=== PATIENT | male | born 1970 | race Caucasian/White ===

== ENCOUNTER → 2018-06-22 07:22 | Outpatient (CLI) | payer OTHER, SELFPAY ==
[2018-06-22 08:17] LABS: Lithium 0.7 mmol/L (0.6-1.2)
[2018-06-22 08:52] LABS: Thyroid Stimulating Hormone 2.86 uIU/mL (0.47-4.68)
== END ==
PROVIDERS: PCP Internal Medicine; Visit Provider Psychiatry & Neurology Addiction Medicine
DX: F31.76 Bipolar disorder, in full remission, most recent episode depressed (principal)
CPT/HCPCS: 36415; 80178; 84443

== ENCOUNTER → 2018-09-21 13:31 | Outpatient (CLI) | payer OTHER, SELFPAY ==
[2018-09-21 14:10] LABS: Add Manual Diff / Slide Review NO; Basophils Percent Auto 0.5 % (0-2); Eosinophils Percent Auto 2.5 % (2-4); Hematocrit 45.1 % (41-53); Hemoglobin 15.5 g/dL (13.5-17.5); Lymphocytes Percent Auto 20.8 % (25-40); Mean Corpuscular HGB Conc 34.3 % (30-36); Mean Corpuscular Hemoglobin 31.1 PG (26-34); Mean Corpuscular Volume 90.7 fL (80-100); Monocytes Percent Auto 6.6 % (3-14); Neutrophils Absolute Auto 5900 /uL (1500-7000); Neutrophils Percent Auto 69.6 % (50-75); Platelet Count 244 X10^3/uL (150-400); Red Blood Cell Count 4.97 X10^6/uL (4.5-5.9); Red Cell Distribution Width 12.8 % (11.6-14.8); White Blood Cell Count 8.4 X10^3/uL (4.5-11.0)
[2018-09-21 14:47] LABS: Erythrocyte Sedimentation Rate 3 MM/HR (0-15)
[2018-09-21 16:06] LABS: Alanine Aminotransferase 31 IU/L (21-72); Albumin 4.6 g/dL (3.5-5.0); Albumin Globulin Ratio 1.8 (1.0-2.8); Alkaline Phosphatase 55 U/L (38-126); Aspartate Aminotransferase 27 IU/L (17-59); BUN Creatinine Ratio 21.7 (6-22); Bilirubin Total 0.6 mg/dL (0.2-1.3); Blood Urea Nitrogen 13 mg/dL (9-20); Calcium 9.8 mg/dL (8.4-10.2); Carbon Dioxide 26 mmol/L (22-32); Chloride 102 mmol/L (98-107); Estimated Glomerular Filt Rate > 60.0 mL/min (>60); Globulin 2.6 g/dL (1.7-4.1); Glucose 78 mg/dL (70-100); HEMOLYSIS < 15 (0-50); Potassium 4.4 mmol/L (3.4-5.1); Sodium 141 mmol/L (137-145); Total Protein 7.2 g/dL (6.3-8.2)
[2018-09-21 16:07] LABS: C-Reactive Protein Quant < 0.5 mg/dL (<1.0)
== END ==
PROVIDERS: PCP Internal Medicine; Visit Provider Internal Medicine
DX: R10.9 Unspecified abdominal pain (principal)
CPT/HCPCS: 36415; 80053; 85025; 85651; 86140

== ENCOUNTER → 2019-01-05 07:03 | Outpatient (CLI) | payer OTHER, SELFPAY ==
[2019-01-05 09:34] LABS: Lithium 0.9 mmol/L (0.6-1.2)
[2019-01-05 09:40] LABS: Blood Urea Nitrogen 7 mg/dL (9-20); Calcium 9.6 mg/dL (8.4-10.2); Carbon Dioxide 25 mmol/L (22-32); Chloride 102 mmol/L (98-107); Estimated Glomerular Filt Rate > 60.0 mL/min (>60); Glucose 64 mg/dL (70-100); HEMOLYSIS < 15 (0-50); Potassium 4.7 mmol/L (3.4-5.1); Sodium 138 mmol/L (137-145)
== END ==
PROVIDERS: PCP Internal Medicine; Visit Provider Psychiatry & Neurology Addiction Medicine
DX: F31.76 Bipolar disorder, in full remission, most recent episode depressed (principal)
CPT/HCPCS: 36415; 80048; 80178

== ENCOUNTER → 2019-02-08 07:21 | Outpatient (CLI) | payer OTHER, SELFPAY ==
[2019-02-08 08:53] LABS: Cholesterol 108 mg/dL (140-199); HDL Cholesterol 25 mg/dL (40-60); LDL Cholesterol Calculated 51 mg/dL (<100); Triglycerides 158 mg/dL (35-150)
== END ==
PROVIDERS: PCP Internal Medicine; Visit Provider Internal Medicine
DX: E78.2 Mixed hyperlipidemia (principal)
CPT/HCPCS: 36415; 80061

== ENCOUNTER → 2019-10-15 09:00 | Outpatient (CLI) | payer OTHER, SELFPAY ==
--- NOTE | 2019-10-15 | DI.RAD.S_ITS ---
PROCEDURE: XR LUMBAR SPINE 2-3V INDICATIONS: Low back pain TECHNIQUE: 3 views of the lumbar spine were acquired. COMPARISON: None. FINDINGS: Bones: 5 [id number]-[id number] vertebrae are present. There is normal bony alignment. No vertebral body compression fractures. Mild degenerative endplate changes and mild bilateral facet arthrosis at L4-5 and L5-S1 levels are seen. No suspicious bony lesions. Soft tissues: Overlying bowel gas pattern is normal. No suspicious soft tissue calcifications. IMPRESSION: No compression fracture or spondylolisthesis. Mild degenerative endplate changes and bilateral facet arthrosis at L4-5 and L5-S1 levels.. Dictated by: Spencer Ramos M.D. on 10/15/2019 at 10:00 Approved by: Spencer Ramos M.D. on 10/15/2019 at 10:01
== END ==
PROVIDERS: PCP Internal Medicine; Visit Provider Chiropractor
DX: M54.5 Low back pain (principal); M47.816 Spondylosis without myelopathy or radiculopathy, lumbar region; M47.817 Spondylosis without myelopathy or radiculopathy, lumbosacral region
CPT/HCPCS: 72100

== ENCOUNTER → 2020-03-20 07:10 | Outpatient (CLI) | payer OTHER, SELFPAY ==
[2020-03-20 08:59] LABS: BUN Creatinine Ratio 15.4 (6-22); Blood Urea Nitrogen 12 mg/dL (9-20); Calcium 9.4 mg/dL (8.4-10.2); Carbon Dioxide 24 mmol/L (22-32); Chloride 109 mmol/L (98-107); Estimated Glomerular Filt Rate > 60.0 mL/min (>60); Glucose 101 mg/dL (70-100); HEMOLYSIS 31 (0-50); Potassium 4.3 mmol/L (3.4-5.1); Sodium 139 mmol/L (137-145)
[2020-03-20 09:18] LABS: Lithium 0.7 mmol/L (0.6-1.2)
[2020-03-20 09:35] LABS: Thyroid Stimulating Hormone 1.81 uIU/mL (0.47-4.68)
== END ==
PROVIDERS: PCP Internal Medicine; Referring Provider Psychiatry & Neurology Addiction Medicine; Visit Provider Psychiatry & Neurology Addiction Medicine
DX: F31.76 Bipolar disorder, in full remission, most recent episode depressed (principal)
CPT/HCPCS: 36415; 80048; 80178; 84443

== ENCOUNTER → 2020-09-25 07:17 | Outpatient (CLI) | payer OTHER, SELFPAY ==
[2020-09-25 09:15] LABS: Add Manual Diff / Slide Review NO; Basophils Absolute Auto 0 /uL (0-100); Basophils Percent Auto 0.8 % (0-2); Eosinophils Absolute Auto 200 /uL (0-450); Eosinophils Percent Auto 2.9 % (2-4); Hematocrit 46.4 % (41-53); Hemoglobin 15.8 g/dL (13.5-17.5); Lymphocytes Absolute Auto 1900 /uL (1100-4500); Lymphocytes Percent Auto 30.7 % (25-40); Mean Corpuscular Hemoglobin 29.3 PG (26-34); Mean Corpuscular Volume 86.4 fL (80-100); Monocytes Absolute Auto 500 /uL (0-900); Monocytes Percent Auto 7.8 % (3-14); Neutrophils Absolute Auto 3600 /uL (1500-7000); Neutrophils Percent Auto 57.8 % (50-75); Platelet Count 221 X10^3/uL (150-400); Red Blood Cell Count 5.37 X10^6/uL (4.5-5.9); Red Cell Distribution Width 13.4 % (11.6-14.8); White Blood Cell Count 6.3 X10^3/uL (4.5-11.0)
[2020-09-25 09:45] LABS: Alanine Aminotransferase 42 IU/L (<50); Albumin 4.4 g/dL (3.5-5.0); Albumin Globulin Ratio 1.3 (1.0-2.8); Alkaline Phosphatase 68 U/L (38-126); Aspartate Aminotransferase 36 IU/L (17-59); BUN Creatinine Ratio 19.4 (6-22); Bilirubin Total 0.4 mg/dL (0.2-1.3); Blood Urea Nitrogen 18 mg/dL (9-20); C-Reactive Protein Quant 0.6 mg/dL (<1.0); Calcium 9.6 mg/dL (8.4-10.2); Carbon Dioxide 24 mmol/L (22-32); Chloride 108 mmol/L (98-107); Cholesterol 232 mg/dL (140-199); Estimated Glomerular Filt Rate > 60.0 mL/min (>60); Globulin 3.3 g/dL (1.7-4.1); Glucose 100 mg/dL (70-100); HDL Cholesterol 28 mg/dL (40-60); HEMOLYSIS < 15 (0-50); LDL Cholesterol Calculated 136 mg/dL (<100); Lithium 0.5 mmol/L (0.6-1.2); Potassium 4.2 mmol/L (3.4-5.1); Sodium 137 mmol/L (137-145); Total Protein 7.7 g/dL (6.3-8.2); Triglycerides 338 mg/dL (35-150)
[2020-09-25 09:54] LABS: Erythrocyte Sedimentation Rate 2 MM/HR (0-15)
== END ==
PROVIDERS: PCP Internal Medicine; Referring Provider Internal Medicine; Visit Provider Internal Medicine
DX: E78.2 Mixed hyperlipidemia (principal); F31.9 Bipolar disorder, unspecified; I10 Essential (primary) hypertension
CPT/HCPCS: 36415; 80053; 80061; 80178; 85025; 85651; 86140

== ENCOUNTER → 2020-11-17 07:24 | Outpatient (CLI) | payer OTHER, SELFPAY ==
[2020-11-17 08:51] LABS: Alanine Aminotransferase 37 IU/L (<50); Albumin Globulin Ratio 1.4 (1.0-2.8); Alkaline Phosphatase 64 U/L (38-126); Aspartate Aminotransferase 33 IU/L (17-59); Bilirubin Total 0.3 mg/dL (0.2-1.3); Bilirubin Unconjugated 0.2 mg/dL (0.0-1.1); Cholesterol 227 mg/dL (140-199); Globulin 2.9 g/dL (1.7-4.1); HDL Cholesterol 27 mg/dL (40-60); HEMOLYSIS < 15 (0-50); LDL Cholesterol Calculated 131 mg/dL (<100); Total Protein 6.9 g/dL (6.3-8.2); Triglycerides 345 mg/dL (35-150)
== END ==
PROVIDERS: PCP Internal Medicine; Referring Provider Dermatology; Visit Provider Dermatology
DX: Z79.899 Other long term (current) drug therapy (principal); Z20.822 Contact with and (suspected) exposure to COVID-19; Z20.828 Contact with and (suspected) exposure to other viral communicable diseases
CPT/HCPCS: 36415; 80061; 80076; 86769

== ENCOUNTER → 2020-12-22 09:00 | Outpatient (CLI) | payer OTHER, SELFPAY ==
[2020-12-22 09:54] LABS: COVID19 -Nasal RAPID Negative (Negative)
== END ==
PROVIDERS: PCP Internal Medicine; Referring Provider Internal Medicine; Visit Provider Internal Medicine
DX: Z20.822 Contact with and (suspected) exposure to COVID-19 (principal)
CPT/HCPCS: 87635; C9803

== ENCOUNTER → 2020-12-22 12:44 | Outpatient (CLI) | payer OTHER, SELFPAY ==
--- NOTE | 2020-12-27 10:29 | PM.PFT.1 ---
Pulmonary Function Test Referral & Results Date Patient Seen: 12/22/20 Requesting provider: Arturo Rebollar Results: The spirometry demonstrates an FVC of 4.58 L which is 108% of predicted. The FEV1 was measured at 4.36 L which is 111% of predicted. The FEV1/FVC ratio was 80 which is 101% of predicted. Following the administration of bronchodilator there was no appreciable change to above normal numbers. Lung volumes show an SVC of 5.48 L which is 111% of predicted. The diffusing capacity was measured at 39.53 which is 122% of predicted. The maximum voluntary ventilation was normal Interpretation: This study demonstrates normal pulmonary function
== END ==
PROVIDERS: PCP Internal Medicine; Referring Provider Internal Medicine; Visit Provider Internal Medicine
DX: R06.2 Wheezing (principal); Z20.822 Contact with and (suspected) exposure to COVID-19
CPT/HCPCS: 87635; 94060; 94726; 94729; C9803

== ENCOUNTER → 2020-12-28 09:02 | Outpatient (CLI) | payer OTHER, SELFPAY ==
[2020-12-28 10:20] LABS: COVID19 -Nasal RAPID Negative (Negative)
== END ==
PROVIDERS: PCP Internal Medicine; Visit Provider Specialist
DX: Z20.822 Contact with and (suspected) exposure to COVID-19 (principal)
CPT/HCPCS: 87635; C9803

== ENCOUNTER 2020-12-29 08:19 | Day surgery (SDC) | payer OTHER, SELFPAY ==
[2020-12-29 08:44] VITALS: BP 136/83; PULSE 76; RESP 15; TEMP 36.6; O2SAT 98; BMI 43.0
[2020-12-29] MEDS: LACTATED RINGERS 1,000 ML 200 ML IV (08:55)
--- NOTE | 2020-12-29 09:11 | PM.HP.1 ---
History of Present Illness History of Present Illness Date Patient Seen: 12/29/20 Time Patient Seen: 09:12 Chief complaint: SDC Narrative: Patient here for screening colonoscopy. He has turned 50. No prior colonoscopies. No family history. Patient History Medical History Acne Bipolar I disorder (06/18/11) Chronic cough Essential hypertension (06/18/11) Hypogonadism in male (12/04/12) Mixed hyperlipidemia (06/18/11) Morbid obesity Obstructive sleep apnea, adult Peyronie disease Restless legs syndrome (RLS) Surgical History No history of previous surgery Family & Social History Family History Grandmother Heart disease Sleep apnea Obesity Mother Ulcerative colitis Restless leg syndrome Grandfather Colon cancer Father Ocular melanoma Grandmother No problems noted. Social History: household members spouse Tobacco & Substance use: Smoking Status Never smoker alcohol intake never Substance Use Type does not use Meds Home Medications and Allergies Home Medications Medication Instructions Recorded Confirmed Type aspirin [Aspir-81] 81 mg PO DAILY #0 06/18/11 12/29/20 History azelastine 137 mcg (0.1 %) nasal NASAL 75 Days #90 ml 09/24/18 12/08/20 History spray aerosol fluticasone propionate 50 1 spray NASAL DAILY 90 Days #96 09/24/18 12/29/20 History mcg/actuation nasal gram spray,suspension lithium carbonate 300 mg 1,500 mg PO DAILY 90 Days #450 tab 09/24/18 12/29/20 History tablet,extended release ipratropium bromide 21 mcg (0.03 2 spray INTRANASAL BID ml 12/08/20 12/29/20 History %) nasal spray isotretinoin 40 mg capsule 120 mg PO DAILY cap 12/08/20 12/29/20 History omeprazole 40 mg capsule,delayed 40 mg PO DAILY #30 cap 12/08/20 12/29/20 Rx release Allergies Allergy/AdvReac Type Severity Reaction Status Date / Time penicillin G [PENICILLIN G] Allergy Severe Unknown Verified 12/29/20 08:14 venom-honey bee Allergy Severe anaphylaxis Verified 12/29/20 08:14 [BEE VENOM (HONEY BEE)] Review of Systems Review of Systems Narrative: Has sleep apnea and uses a machine. ROS: Yes All systems reviewed with the patient and are negative except as otherwise documented Exam Vital Signs (past 8 hours): - 12/29/20 08:44 Temperature 97.9 F Pulse Rate 76 Respiratory Rate 15 Blood Pressure 136/83 Pulse Oximetry 98 Oxygen Delivery Method Room Air Narrative Exam Narrative: Pleasant cooperative patient no apparent distress. Lungs are clear to auscultation. No rales or rhonchi. Heart regular rate and rhythm no murmur gallop. Abdomen is soft nontender without mass. No obvious hernias. Patient is alert and oriented x3. Assessment & Plan Assessment & Plan narrative: The patient for a screening colonoscopy. I have discussed the procedure with them. Risks of bleeding, perforation which would necessitate major operation, failure to find remove all lesions, the potential tattoo were all discussed. All questions were answered. They wished to proceed.
--- NOTE | 2020-12-29 09:13 | PM.PREOP ---
Pre-operative Note COVID-19 COVID-19 status: Negative Result date/Date tested (Pos, Neg/Pending): 12/28/20 Interval Note History & Physical reviewed/Exam performed by Physician: Yes Changes to H&P: No ASA Class (for procedural sedation): II
[2020-12-29] MEDS: MIDAZOLAM 5 MG/5 ML VIAL IV (09:17)
[2020-12-29] MEDS: fentaNYL 250 MCG/5 ML INJ IV (09:20)
--- NOTE | 2020-12-29 09:54 | PM.OP.ENDO ---
Operative Date/Time/Diagnoses Date of procedure: 12/29/20 Time of procedure: 09:54 Pre-op diagnosis: Screening examination. This is his 1st colonoscopy. Grandfather with colon cancer. Mother with ulcerative colitis. Post-op diagnosis: same (Diverticulosis sigmoid colon) Procedure & Clinicians Study performed: Colonoscopy Same procedure as scheduled: Yes Indications: Screening for colon cancer due to age Surgeon: Andrés Garber Procedure Notes SCOAP/Timeout: Performed Procedure in detail: The patient was placed in the left lateral decubitus position and underwent IV sedation directed by the surgeon consisting of fentanyl and Versed. He desired to be lightly sedated so he could watch some of the procedure. Digital exam was unremarkable though I could not feel his prostate due to his anatomy in the length of my finger.. The scope was inserted and advanced through the rectum into the sigmoid, descending, transverse, and ascending colon. Patient was noted to have diverticulosis in his sigmoid colon. With great difficulty you we reached the cecum. This was helped by inserting a stiffener, applying pressure, and repositioning the patient.. The cecum was reached identified by the ileocecal valve and the appendiceal opening. The ileocecal valve was successfully cannulated. The terminal ileum was normal in appearance. The scope was gradually brought out. No Polyps were found . The scope ultimately was retroflexed in the rectum. The appearance was normal. The scope was removed and the patient tolerated the procedure well. Prep was very good. Scope withdrawal time: 10.5 minutes Sedation minutes: 35 Findings: diverticulosis Specimen(s): none sent Complications: none Post-procedure Recommendations: Colonscopy in 5 years (Due to family history) Follow up: as needed Disposition: PACU
[2020-12-29 10:07] VITALS: BP 151/97; PULSE 82; RESP 18; TEMP 37; O2SAT 97
[2020-12-29 10:20] VITALS: BP 142/78; PULSE 75; RESP 16; TEMP 36.7; O2SAT 97
[2020-12-29 10:33] VITALS: BP 148/95; PULSE 81; RESP 16; TEMP 36.1; O2SAT 96
== END 2020-12-29 10:35 | disposition home or self-care (01) ==
PROVIDERS: PCP Internal Medicine; Referring Provider Internal Medicine; Visit Provider Specialist
PROC: 0DJD8ZZ Inspection of Lower Intestinal Tract, Via Natural or Artificial Opening Endoscopic (ICD-10-PCS; CPT 45378; principal; 2020-12-29 09:15)
DX: Z12.11 Encounter for screening for malignant neoplasm of colon (principal); Z83.79 Family history of other diseases of the digestive system; G47.33 Obstructive sleep apnea (adult) (pediatric); K57.30 Diverticulosis of large intestine without perforation or abscess without bleeding
CPT/HCPCS: 45378; 99152; 99153; J2250; J3010

== ENCOUNTER → 2021-01-05 07:31 | Outpatient (CLI) | payer OTHER, SELFPAY ==
[2021-01-05 09:21] LABS: Alanine Aminotransferase 51 IU/L (<50); Albumin 4.1 g/dL (3.5-5.0); Albumin Globulin Ratio 1.2 (1.0-2.8); BUN Creatinine Ratio 17.5 (6-22); Bilirubin Total 0.7 mg/dL (0.2-1.3); Blood Urea Nitrogen 14 mg/dL (9-20); Calcium 9.1 mg/dL (8.4-10.2); Carbon Dioxide 22 mmol/L (22-32); Chloride 107 mmol/L (98-107); Cholesterol 235 mg/dL (140-199); Estimated Glomerular Filt Rate > 60.0 mL/min (>60); Globulin 3.5 g/dL (1.7-4.1); Glucose 108 mg/dL (70-100); HDL Cholesterol 21 mg/dL (40-60); HEMOLYSIS 184 (0-50); Sodium 137 mmol/L (137-145); Total Protein 7.6 g/dL (6.3-8.2)
[2021-01-05 09:22] LABS: Potassium 4.7 mmol/L (3.4-5.1)
[2021-01-05 09:23] LABS: Alkaline Phosphatase 89 U/L (38-126); Aspartate Aminotransferase 53 IU/L (17-59); Triglycerides 2041 mg/dL (35-150)
[2021-01-07 13:05] LABS: Lithium 0.7 mmol/L (0.6-1.2)
== END ==
PROVIDERS: PCP Internal Medicine; Referring Provider Internal Medicine; Visit Provider Internal Medicine
DX: E78.2 Mixed hyperlipidemia (principal); Z79.899 Other long term (current) drug therapy; F31.9 Bipolar disorder, unspecified
CPT/HCPCS: 36415; 80053; 80061; 80178

== ENCOUNTER → 2021-03-09 07:38 | Outpatient (CLI) | payer OTHER, SELFPAY ==
[2021-03-09 09:09] LABS: Cholesterol 118 mg/dL (140-199); HDL Cholesterol 30 mg/dL (40-60); LDL Cholesterol Calculated 58 mg/dL (<100); Triglycerides 151 mg/dL (35-150)
== END ==
PROVIDERS: PCP Internal Medicine; Referring Provider Internal Medicine; Visit Provider Internal Medicine
DX: Z79.899 Other long term (current) drug therapy (principal)
CPT/HCPCS: 36415; 80061

== ENCOUNTER → 2021-03-17 08:27 | Outpatient (CLI) | payer OTHER, SELFPAY ==
--- NOTE | 2021-03-17 08:29 | DI.MRI.S_ITS ---
PROCEDURE: MR LUMBAR SPINE WO CON INDICATIONS: right lumbar radiculopathy TECHNIQUE: Noncontrast sagittal T1 spin echo and T2 fast echo, sagittal STIR, axial T1 and T2 fast spin echo through the lumbar spine. In cases with scoliosis, additional coronal T2 fast spin echo may be performed. COMPARISON: None. FINDINGS: Image quality: Excellent. Alignment and Curvature: Normal lumbar vertebral body height and alignment. Bone Marrow: No suspicious focal marrow signal abnormality or bone marrow edema. Spinal Cord: Normal position and appearance of the conus. Regional Soft Tissues: Prevertebral and paraspinous soft tissues are within normal limits. The included unenhanced retroperitoneal visceral structures demonstrate no acute abnormality. T12-L1: No spinal canal or neural foraminal stenosis. L1-L2: No spinal canal or neural foraminal stenosis. L2-L3: No spinal canal or neural foraminal stenosis. L3-L4: Disc bulge flattens the ventral thecal sac. No mass effect upon the traversing L4 nerve roots. Foraminal components of the disc bulge contribute to trace neural foraminal narrowing. There are small bilateral facet effusions. L4-L5: Diffuse disc bulge with a superimposed broad-based posterior disc protrusion flattens and indents the ventral thecal sac. Disc material mildly displaces the descending right L5 nerve root within the right subarticular zone. Foraminal components of the disc bulge and facet hypertrophy contribute to mild bilateral neural foraminal narrowing. L5-S1: Diffuse disc bulge flattens the ventral thecal sac and mildly displaces the descending right S1 nerve roots. Foraminal components of the disc bulge and facet hypertrophy contribute to moderate bilateral neural foraminal stenosis. IMPRESSION: Degenerative changes at L4-L5 and L5-S1 with displacement of the descending right L5 and S1 nerve roots at these levels, respectively. Correlate for any corresponding radicular symptoms. Moderate neural foraminal narrowing at L5-S1. Correlate for any corresponding L5 radicular symptoms. Dictated by: Storm Yao M.D. on 03/19/2021 at 8:34 Approved by: Storm Yao M.D. on 03/19/2021 at 8:38
== END ==
PROVIDERS: PCP Internal Medicine; Referring Provider Internal Medicine; Visit Provider Internal Medicine
DX: M47.26 Other spondylosis with radiculopathy, lumbar region (principal); M47.27 Other spondylosis with radiculopathy, lumbosacral region; M48.07 Spinal stenosis, lumbosacral region; M51.17 Intervertebral disc disorders with radiculopathy, lumbosacral region
CPT/HCPCS: 72148

== ENCOUNTER → 2021-12-28 07:53 | Outpatient (CLI) | payer OTHER, SELFPAY ==
--- NOTE | 2021-12-28 08:16 | DI.RAD.S_ITS ---
PROCEDURE: XR CHEST 2V INDICATIONS: cough TECHNIQUE: 2 views of the chest were acquired. COMPARISON: None. FINDINGS: Surgical changes and devices: None. Lungs and pleura: Lungs are clear. No pleural effusions or pneumothorax. Mediastinum: Mediastinal contours are normal. Heart size is normal. Bones and chest wall: No suspicious bony abnormalities. Soft tissues appear unremarkable. IMPRESSION: No acute cardiopulmonary process is seen. No focal infiltrates are seen. Dictated by: Gume Myrick M.D. on 12/28/2021 at 12:21 Approved by: Gume Myrick M.D. on 12/28/2021 at 12:24
[2021-12-28 08:20] LABS: Add Manual Diff / Slide Review NO; Basophils Absolute Auto 0 /uL (0-100); Basophils Percent Auto 0.6 % (0-2); Eosinophils Absolute Auto 200 /uL (0-450); Eosinophils Percent Auto 3.9 % (2-4); Hematocrit 42.8 % (41-53); Hemoglobin 14.8 g/dL (13.5-17.5); Lymphocytes Absolute Auto 1900 /uL (1100-4500); Lymphocytes Percent Auto 36.4 % (25-40); Mean Corpuscular HGB Conc 34.7 % (30-36); Mean Corpuscular Hemoglobin 30.2 PG (26-34); Monocytes Absolute Auto 400 /uL (0-900); Monocytes Percent Auto 8.1 % (3-14); Neutrophils Absolute Auto 2700 /uL (1500-7000); Platelet Count 189 X10^3/uL (150-400); Red Blood Cell Count 4.91 X10^6/uL (4.5-5.9); Red Cell Distribution Width 13.5 % (11.6-14.8); White Blood Cell Count 5.3 X10^3/uL (4.5-11.0)
[2021-12-28 08:52] LABS: Lithium 0.6 mmol/L (0.6-1.2)
[2021-12-28 09:02] LABS: Alanine Aminotransferase 45 IU/L (<50); Albumin 4.3 g/dL (3.5-5.0); Albumin Globulin Ratio 1.7 (1.0-2.8); Alkaline Phosphatase 59 U/L (38-126); Aspartate Aminotransferase 37 IU/L (17-59); BUN Creatinine Ratio 12.1 (6-22); Bilirubin Total 0.5 mg/dL (0.2-1.3); Blood Urea Nitrogen 11 mg/dL (9-20); Calcium 9.4 mg/dL (8.4-10.2); Carbon Dioxide 23 mmol/L (22-32); Chloride 106 mmol/L (98-107); Cholesterol 117 mg/dL (140-199); Estimated Glomerular Filt Rate > 60.0 mL/min (>60); Globulin 2.6 g/dL (1.7-4.1); Glucose 110 mg/dL (70-100); HDL Cholesterol 27 mg/dL (40-60); HEMOLYSIS < 15 (0-50); LDL Cholesterol Calculated 58 mg/dL (<100); Potassium 4.3 mmol/L (3.4-5.1); Sodium 138 mmol/L (137-145); Total Protein 6.9 g/dL (6.3-8.2); Triglycerides 158 mg/dL (35-150)
[2021-12-28 09:27] LABS: Thyroid Stimulating Hormone 1.87 uIU/mL (0.47-4.68)
== END ==
PROVIDERS: PCP Internal Medicine; Referring Provider Psychiatry & Neurology Addiction Medicine; Visit Provider Psychiatry & Neurology Addiction Medicine
DX: F31.76 Bipolar disorder, in full remission, most recent episode depressed (principal); E78.2 Mixed hyperlipidemia; F31.9 Bipolar disorder, unspecified; I10 Essential (primary) hypertension; R05.9 Cough, unspecified
CPT/HCPCS: 36415; 71046; 80053; 80061; 80178; 84443; 85025

== ENCOUNTER → 2022-05-15 06:43 | Outpatient (CLI) | payer OTHER, SELFPAY ==
[2022-05-15 07:59] LABS: Glucose 134 mg/dL (70-100)
== END ==
PROVIDERS: PCP Internal Medicine; Referring Provider Dermatology; Visit Provider Dermatology
DX: E11.9 Type 2 diabetes mellitus without complications (principal); Z79.899 Other long term (current) drug therapy
CPT/HCPCS: 36415; 82947

== ENCOUNTER → 2022-05-16 06:43 | Outpatient (CLI) | payer OTHER, SELFPAY ==
[2022-05-16 10:59] LABS: Glucose 128 mg/dL (70-100)
== END ==
PROVIDERS: PCP Internal Medicine; Referring Provider Dermatology; Visit Provider Dermatology
DX: Z79.899 Other long term (current) drug therapy (principal)
CPT/HCPCS: 36415; 82947

== ENCOUNTER → 2022-07-26 14:16 | Outpatient (CLI) | payer OTHER, SELFPAY ==
--- NOTE | 2022-07-26 16:02 | DIAB.MNT ---
Initial Diabetes Medical Nutrition Therapy Assessment Name: Isaac Cevallos (Tyrone) Date: 07/26/22 Time: 3-350p Dx: Type II Diabetes Provider: Keturah Hansen presents for initial visit regarding new diabetes and weight loss. Recent diagnosis of DM with 2 FBG >126 mg/dL. States he noticed his FBG was elevated when checking using a family glucometer on vacation. Reports long PMH of struggling with weight and satiety with meals. Reports large portions, ie 4# of ground meat to feel full. States historically he is successful on low carb, ie Atkins. Interested in reinstating this. States his eating schedule is variable and often goes >5 hours without eating. Enjoys protein shake in the morning, homemade. 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 Reports difficulty with weight for years at 190-210# but then after a back injury impacted his activity level wt increased to current 300#+ weight. Currently taking Tirzepatide 10mg weekly with intention to increase to 15 mg in the a month. States the Tirzepatide helped with satiety in the beginning. Still finds he is having some smaller portions, but less of the satiety effect now. Reports almost 30# loss since starting med. Plans for HgA1c before October appt with Dr. Rebollar. Diet Recall: States he is unable to give an accurate diet recall due to the vast variety of food and times of consumption. Foods he often eats include, canned chicken, cheese with serna, pb, nutella, foot long sandwich, rice noodles with sweet trinidadian chili sauce. cookies x6. Interested in tracking food intake. Reports PMH GERD, HTN, HLD, and bipolar disorder Maternal grandfather h/o DM. Anthropometrics: Ht: 5'10 Wt: 302# Physical Activity: No program. Does not have activity he enjoys. No h/o successful program reported. States he cannot bike due to back injury. Tried to swim, but difficulty with consistency. Does not enjoy walking outdoors. Self-Monitoring Blood Glucose: None, interested in SMBG. Diabetes Medications: 10 mg Tizepitide weekly Pertinent Labs: Recent FB and 134 mg/dl 05/2022 Past Medical History: (Last Updated 05/17/22 @ 15:40 by Arturo Rebollar MD) Acne Bipolar I disorder (06/18/11) Chronic cough Diabetes type 2, controlled Essential hypertension (06/18/11) Hypogonadism in male (12/04/12) Mixed hyperlipidemia (06/18/11) Morbid obesity Obstructive sleep apnea, adult Peyronie disease Restless legs syndrome (RLS) no treatment needed Nutrition Rx: [id number] Nutrition Diagnosis: - Excessive CHO intake r/t difficulty with satiety and variable eating schedule/choices aeb pt report and elevate FBG - Excessive energy intake r/t difficulty with satiety and variable eating schedule/choices aeb elevated FBG and BMI -Physical inactivity r/t limited activity acceptance and back injury aeb pt report - Predicted inadequate fiber intake r/t limited vegetables and whole grains aeb pt report Intervention: This participant was very receptive. Provided appropriate educational handouts. Discussed the following topics: Completed intake assessment. Discussed barriers to care. Plate Method Fiber recs on a low carb diet Concerns for sat fat intake on low carb diet Heart health nutrition Benefits of tracking food intake Consideration for SMBG Discussed possibilities for phys activity Created SMART goals for patient self-care and success. Goals: Keep food journal Add vegetables Trial pro shake q morning (bring recipe for review) Discuss SMBG supplies with PCP Follow-up: ANNA BERTRAND follow-up in 2-3 weeks Silvia Schaefer RDN, JERZY Certified Diabetes Care and [employer] P: [phone] Thank you for this referral
== END ==
PROVIDERS: PCP Internal Medicine; Referring Provider Internal Medicine; Visit Provider Internal Medicine
DX: E11.9 Type 2 diabetes mellitus without complications (principal); Z79.84 Long term (current) use of oral hypoglycemic drugs; Z71.3 Dietary counseling and surveillance
CPT/HCPCS: 97802

== ENCOUNTER → 2023-02-28 06:49 | Outpatient (CLI) | payer OTHER, SELFPAY ==
[2023-02-28 09:10] LABS: Lithium 0.7 mmol/L (0.6-1.2)
[2023-02-28 09:15] LABS: BUN Creatinine Ratio 11.6 (6-22); Blood Urea Nitrogen 11 mg/dL (9-20); Calcium 8.9 mg/dL (8.4-10.2); Carbon Dioxide 24 mmol/L (22-32); Estimated Glomerular Filt Rate > 60 mL/min (>60); Glucose 98 mg/dL (70-100); HEMOLYSIS < 15 (0-50)
[2023-02-28 09:23] LABS: Chloride 103 mmol/L (98-107); Potassium 4.2 mmol/L (3.4-5.1); Sodium 135 mmol/L (137-145)
[2023-02-28 09:44] LABS: Thyroid Stimulating Hormone 2.24 uIU/mL (0.47-4.68)
== END ==
PROVIDERS: PCP Internal Medicine; Referring Provider Psychiatry & Neurology Addiction Medicine; Visit Provider Psychiatry & Neurology Addiction Medicine
DX: F31.76 Bipolar disorder, in full remission, most recent episode depressed (principal)
CPT/HCPCS: 36415; 80048; 80178; 84443

== ENCOUNTER → 2023-06-13 16:09 | Outpatient (CLI) | payer OTHER, SELFPAY ==
[2023-06-13 17:24] LABS: Estimated Glomerular Filt Rate > 60 mL/min (>60)
== END ==
PROVIDERS: Radiology Diagnostic Radiology; PCP Internal Medicine; Referring Provider Internal Medicine; Visit Provider Internal Medicine
DX: I49.3 Ventricular premature depolarization (principal)
CPT/HCPCS: 82565

== ENCOUNTER → 2023-06-14 09:24 | Outpatient (CLI) | payer OTHER, SELFPAY ==
--- NOTE | 2023-06-14 09:30 | DI.CT.S_ITS ---
PROCEDURE: CT ANGIO HEAD AND NECK INDICATIONS: 52-year-old male with single episode of AMAUROSIS FUGAX TECHNIQUE: After the administration of intravenous contrast, 1 mm thick sections acquired from the aortic arch through the [place] of [place]. MIP reformats of the arterial vasculature were utilized. For radiation dose reduction, the following was used: automated exposure control, adjustment of mA and/or kV according to patient size. COMPARISON: None. FINDINGS: Cerebral CT Angiogram: Internal carotid arteries: No acute findings. Intracranial ICA are patent with no significant stenosis. No occlusion. No aneurysm. Anterior cerebral arteries: Unremarkable. No significant stenosis. No occlusion. No aneurysm. Middle cerebral arteries: Unremarkable. No significant stenosis. No occlusion. No aneurysm. 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 The P2 segment is supplied by a widely patent posterior communicating artery. Remainder of the distal vasculature unremarkable. Basilar artery: Unremarkable. No significant stenosis. No occlusion. No aneurysm. Vertebral arteries: Unremarkable as visualized. Dural venous sinuses: Unremarkable given phase of enhancement. Other: Arterial phase brain parenchyma is unremarkable. Neck CT Angiogram: Internal carotid arteries: Unremarkable. No significant stenosis. No dissection or occlusion. Common carotid arteries: Unremarkable. No significant stenosis. No dissection or occlusion. External carotid arteries: Unremarkable. No occlusion. Vertebral arteries: Unremarkable. No significant stenosis. No dissection or occlusion. Other: None. Aortic Arch and Mediastinum: Partially visualized aortic arch unremarkable without evidence of aneurysm. Origins of the great vessels unremarkable. IMPRESSION: 1. Unremarkable CT angiogram of the head and neck Note: If present, proximal ICA stenosis was calculate Approved by: Milton Butterfield M.D. on 06/14/2023 at 19:35
== END ==
PROVIDERS: PCP Internal Medicine; Referring Provider Internal Medicine Cardiovascular Disease; Visit Provider Internal Medicine Cardiovascular Disease
DX: I49.3 Ventricular premature depolarization (principal); G45.3 Amaurosis fugax
CPT/HCPCS: 70496; 70498; Q9967

== ENCOUNTER → 2023-11-14 06:34 | Outpatient (CLI) | payer OTHER, SELFPAY ==
[2023-11-14 08:09] LABS: Lithium 0.8 mmol/L (0.6-1.2)
[2023-11-14 08:14] LABS: Alanine Aminotransferase 58 IU/L (<50); Albumin 4.1 g/dL (3.5-5.0); Albumin Globulin Ratio 1.3 (1.0-2.8); Alkaline Phosphatase 66 U/L (38-126); Aspartate Aminotransferase 38 IU/L (17-59); BUN Creatinine Ratio 13.3 (6-22); Bilirubin Total 0.6 mg/dL (0.2-1.3); Blood Urea Nitrogen 12 mg/dL (9-20); Calcium 9.4 mg/dL (8.4-10.2); Carbon Dioxide 25 mmol/L (22-32); Chloride 106 mmol/L (98-107); Cholesterol 123 mg/dL (140-199); Estimated Glomerular Filt Rate > 60 mL/min (>60); Globulin 3.1 g/dL (1.7-4.1); Glucose 106 mg/dL (70-100); HDL Cholesterol 26 mg/dL (40-60); HEMOLYSIS < 15 (0-50); LDL Cholesterol Calculated 32 mg/dL (<100); Potassium 4.9 mmol/L (3.4-5.1); Sodium 137 mmol/L (137-145); Total Protein 7.2 g/dL (6.3-8.2); Triglycerides 327 mg/dL (35-150)
[2023-11-16 06:08] LABS: x Labcorp Estim. Avg Glu (eAG) 117 mg/dL (.); x Labcorp Hemoglobin A1c 5.7 % (4.8-5.6)
== END ==
PROVIDERS: PCP Internal Medicine; Referring Provider Dermatology; Visit Provider Dermatology
DX: Z79.899 Other long term (current) drug therapy (principal); E11.9 Type 2 diabetes mellitus without complications; I10 Essential (primary) hypertension; E78.2 Mixed hyperlipidemia
CPT/HCPCS: 36415; 80053; 80061; 80178; 83036

== ENCOUNTER → 2024-01-09 06:35 | Outpatient (CLI) | payer OTHER, SELFPAY ==
[2024-01-09 08:50] LABS: Cholesterol 109 mg/dL (140-199); HDL Cholesterol 31 mg/dL (40-60); LDL Cholesterol Calculated 39 mg/dL (<100); Triglycerides 196 mg/dL (35-150)
== END ==
PROVIDERS: PCP Internal Medicine; Referring Provider Internal Medicine Cardiovascular Disease; Visit Provider Internal Medicine Cardiovascular Disease
DX: I47.10 Supraventricular tachycardia, unspecified (principal); E78.2 Mixed hyperlipidemia
CPT/HCPCS: 36415; 80061

== ENCOUNTER → 2024-06-11 09:04 | Outpatient (CLI) | payer OTHER, SELFPAY ==
--- NOTE | 2024-06-11 09:06 | DI.NM.S_ITS ---
PROCEDURE: NM EWA PERF SPECT R&S PHARM Rest and pharmacological stress myocardial perfusion SPECT with gated imaging and ejection fraction RADIOPHARMACEUTICAL: 25.7 mCi Tc-99m tetrafosmin IV at rest and 26.1 mCi Tc-99m tetrafosmin IV at peak effect of pharmacological stress. Eod-xjo-dkshmlrg was performed. INDICATIONS: CHEST PRESSURE / MIXED HYPERLIPIDEMIA PQRS ATTESTATIONS: Measure 322 - Is this imaging test primarily performed on a low-risk surgery patient for preoperative evaluation within 30 days preceding their low-risk non-cardiac surgery? Low-risk surgery is defined as cardiac or myocardial infarction less than 1%, including (but not limited to) endoscopic procedures, superficial procedures, cataract surgery, and excisional breast surgery: Answer: No Measure 323 - Is this imaging test performed primarily for the monitoring of an asymptomatic patient who had percutaneous coronary intervention on the visit date or within 2 years of the visit date? Answer: No Measure 324 - Is this imaging test performed primarily for the initial detection and risk assessment on an asymptomatic, low coronary heart disease patient? Low CHD risk definition = clinicians should consider the maximum number of available patient factors used to estimate risk based on [place] (ATP III criteria), typically age, gender, diabetes, smoking status, and use of blood pressure medication, and integrate age appropriate estimates for missing elements, such as LDL or standard blood pressure. Answer: No TECHNIQUE: Radiopharmaceutical was injected at peak stress test, and also at rest. SPECT images were obtained. SPECT myocardial perfusion images were displayed in short axis, horizontal long axis, and vertical long axis views. Gated images were reviewed using HivelyQUANT software. COMPARISON: None. CARDIAC STRESS: A pharmacologic stress test was performed under the supervision of an attending staff, using an infusion of 0.4 mg of Lexiscan. Hemodynamic data: There is normal blood pressure and heart rate response to pharmacologic stress. Symptoms: The patient denied anginal chest pain. Aminophylline: No EKG: No diagnostic changes of ischemia; no ectopy. FINDINGS: Raw data: There is good myocardial uptake of radiotracer. No significant motion artifacts. Razd-mj-akqxy ratio is 0.35 (normal is less than 0.38 for tetrafosmin tracer). Left ventricle function: Gated images demonstrate normal left ventricular wall thickening. No segmental wall motion abnormalities. No transient ischemic dilation; TID is 0.83 (normal less than 1.3). Left ventricle resting end diastolic volume is 121 mL. Left ventricle stress ejection fraction is 76%; normal range is above 45%. Myocardial perfusion: There is normal distribution of activity in the right and left ventricular myocardium. No fixed or reversible perfusion defects. IMPRESSION: 1. Normal Lexiscan myocardial perfusion scan. Dictated by: Timothy Ramos M.D. on 06/18/2024 at 16:08 Approved by: Timothy Ramos M.D. on 06/18/2024 at 16:09
== END ==
PROVIDERS: PCP Internal Medicine; Referring Provider Internal Medicine Cardiovascular Disease; Visit Provider Internal Medicine Cardiovascular Disease
DX: R07.89 Other chest pain (principal); E78.2 Mixed hyperlipidemia
CPT/HCPCS: 78452; 87070; 87077; 87186; 87205; 93017; A9502; J2785

== ENCOUNTER → 2024-06-11 16:12 | Outpatient (ROUT) | payer OTHER, SELFPAY | PROVIDERS: PCP Internal Medicine; Visit Provider Dermatology | DX: D48.5 Neoplasm of uncertain behavior of skin (principal) | CPT/HCPCS: 87070; 87077; 87186; 87205 ==

== ENCOUNTER → 2024-11-19 06:41 | Outpatient (CLI) | payer OTHER, SELFPAY ==
[2024-11-19 07:36] LABS: Add Manual Diff / Slide Review NO; Basophils Absolute Auto 0 /uL (0-100); Basophils Percent Auto 0.5 % (0-2); Eosinophils Absolute Auto 200 /uL (0-450); Eosinophils Percent Auto 2.7 % (2-4); Hematocrit 44.7 % (41-53); Hemoglobin 15.5 g/dL (13.5-17.5); Lymphocytes Absolute Auto 2100 /uL (1100-4500); Lymphocytes Percent Auto 28.2 % (25-40); Mean Corpuscular HGB Conc 34.6 % (30-36); Mean Corpuscular Hemoglobin 30.5 PG (26-34); Mean Corpuscular Volume 88.2 fL (80-100); Monocytes Absolute Auto 600 /uL (0-900); Neutrophils Absolute Auto 4400 /uL (1500-7000); Neutrophils Percent Auto 60.6 % (50-75); Platelet Count 220 X10^3/uL (150-400); Red Blood Cell Count 5.07 X10^6/uL (4.5-5.9); Red Cell Distribution Width 13.4 % (11.6-14.8); White Blood Cell Count 7.3 X10^3/uL (4.5-11.0)
[2024-11-19 07:44] LABS: INR 1.1 (0.9-1.3); Prothrombin Time 12.1 SECONDS (9.4-12.5)
[2024-11-19 07:47] LABS: PTT Partial Thromboplastin Tim 37 SECONDS (25.1-36.5)
[2024-11-19 08:03] LABS: Hemoglobin A1C% w Est Avg Glu 5.1 % (4.0-6.0)
[2024-11-19 08:04] LABS: HEMOLYSIS < 15 (0-50); Iron 61 ug/dL (49-181); Lithium 0.7 mmol/L (0.6-1.2)
[2024-11-19 08:07] LABS: Alanine Aminotransferase 52 IU/L (<50); Albumin 4.4 g/dL (3.5-5.0); Albumin Globulin Ratio 1.7 (1.0-2.8); Alkaline Phosphatase 50 U/L (38-126); Aspartate Aminotransferase 46 IU/L (17-59); BUN Creatinine Ratio 16.8 (6-22); Bilirubin Total 0.5 mg/dL (0.2-1.3); Blood Urea Nitrogen 16 mg/dL (9-20); Calcium 9.5 mg/dL (8.4-10.2); Carbon Dioxide 22 mmol/L (22-32); Chloride 108 mmol/L (98-107); Cholesterol 98 mg/dL (140-199); Estimated Glomerular Filt Rate > 60 mL/min (>60); Globulin 2.6 g/dL (1.7-4.1); Glucose 103 mg/dL (70-100); HDL Cholesterol 26 mg/dL (40-60); HEMOLYSIS < 15 (0-50); LDL Cholesterol Calculated 43 mg/dL (<100); Potassium 4.4 mmol/L (3.4-5.1); Sodium 138 mmol/L (137-145); Triglycerides 146 mg/dL (35-150)
[2024-11-19 08:15] LABS: Percent Iron Saturation 21 % (20-50); Total Iron Binding Capacity 285 ug/dL (261-462); Transferrin 237 mg/dL (206-381)
[2024-11-19 08:20] LABS: Vitamin D 25 Hydroxy (D3) 26.9 ng/mL (30.0-100.0)
[2024-11-19 08:27] LABS: Free T3, Triiodothyronine Free 3.59 pg/mL (2.77-5.27); Free T4, Direct Thyroxine 0.86 ng/dL (0.78-2.19)
[2024-11-19 08:40] LABS: Prostate Specific Antigen Scrn 0.557 ng/mL (0.1-4.0); Thyroid Stimulating Hormone 2.07 uIU/mL (0.47-4.68)
[2024-11-19 08:44] LABS: Ferritin 89 ng/mL (18-464)
[2024-11-19 09:16] LABS: Folate 7.1 ng/mL (2.76-20.0); Vitamin B12 557 pg/mL (239-931)
== END ==
PROVIDERS: PCP Internal Medicine; Referring Provider Internal Medicine; Visit Provider Internal Medicine
DX: E11.9 Type 2 diabetes mellitus without complications (principal); E66.01 Morbid (severe) obesity due to excess calories; I10 Essential (primary) hypertension; E78.2 Mixed hyperlipidemia; E03.9 Hypothyroidism, unspecified; E55.9 Vitamin D deficiency, unspecified; Z12.5 Encounter for screening for malignant neoplasm of prostate
CPT/HCPCS: 36415; 80053; 80061; 80178; 82306; 82607; 82728; 82746; 83036; 83540; 83550; 84425; 84439; 84443; 84481; 85025; 85610; 85730; G0103

== ENCOUNTER → 2024-12-10 11:23 | Outpatient (CLI) | payer OTHER, SELFPAY | PROVIDERS: PCP Internal Medicine; Referring Provider Internal Medicine; Visit Provider Internal Medicine | DX: E11.9 Type 2 diabetes mellitus without complications (principal); I10 Essential (primary) hypertension; E78.2 Mixed hyperlipidemia; E66.01 Morbid (severe) obesity due to excess calories; E55.9 Vitamin D deficiency, unspecified | CPT/HCPCS: 84425 ==